=== PATIENT | male | born 1980 | race Caucasian/White ===

== ENCOUNTER 2024-02-24 21:52 | Inpatient (IN) | payer OTHER ==
[~2024-02-24] VITALS: Ht 172.7 cm; Wt 86.2 kg
[2024-02-24] MEDS: AZITHROMYCIN 500 MG in DEXTROSE 5% 250 ML IV ONE (00:40)
[2024-02-24] MEDS ORDERED: MAG SULF 2000 MG/WATER PREMIX 50 ML IV ONE (21:59)
[2024-02-24] MEDS ORDERED: methylPREDNISolone SS 125 MG/2 ML VIAL ONE (22:00)
[2024-02-24] MEDS: ALBUTEROL SULFATE/IPRATROPIU 3 ML SOL IH ONE ×2 (22:03→22:04)
[2024-02-24 22:05] VITALS: PULSE 133; RESP 36; O2SAT 96
[2024-02-24] MEDS: MAG SULF 2000 MG/WATER PREMIX 50 ML IV ONE (22:20)
[2024-02-24] MEDS: methylPREDNISolone SS 125 MG/2 ML VIAL IVP ONE (22:21)
[2024-02-24 22:22] VITALS: BP 169/98; PULSE 132; RESP 25; TEMP 98; O2SAT 92
[2024-02-24 22:56] LABS: BASOPHILS # (AUTO) 0.1 K/uL (0.00-0.22); BASOPHILS % (AUTO) 0.5 % (0.0-2.0); EOSINOPHILS % (AUTO) 8.5 % (0.0-4.0); HEMATOCRIT 45.8 % (36-52); HEMOGLOBIN 14.8 g/dL (12.0-18.0); LYMPHOCYTES # (AUTO) 1.6 K/uL (2.0-11.5); LYMPHOCYTES % (AUTO) 13.1 % (20.5-51.1); MEAN CORPUSCULAR HEMOGLOBIN 27 pg (27-31); MEAN CORPUSCULAR HGB CONC 32 g/dL (33-37); MONOCYTES # (AUTO) 1.2 K/uL (0.8-1.0); MONOCYTES % (AUTO) 10.1 % (1.7-9.3); NEUTROPHILS # (AUTO) 8.3 K/uL (1.8-7.7); NEUTROPHILS % (AUTO) 67.8 % (42.2-75.2); PLATELET COUNT (AUTO) 294 K/uL (140-450); RED BLOOD CELL COUNT(AUTO) 5.39 MIL/uL (4.20-6.10); RED CELL DISTRIBUTION WIDTH 15.7 % (11.6-13.7); WHITE BLOOD COUNT (AUTO) 12.2 K/uL (4.8-10.8)
[2024-02-24 23:09] LABS: ANION GAP 13.1 (8-16); CALCIUM 9.3 mg/dL (8.5-10.1); CARBON DIOXIDE 28.8 mmol/L (21-32); CREATININE 0.8 mg/dL (0.6-1.3); POTASSIUM 3.9 mmol/L (3.5-5.1)
[2024-02-24 23:12] LABS: INR 0.94 (0.8-1.2); PARTIAL THROMBOPLASTIN TIME 26.7 secs (22-35.6); PROTHROMBIN TIME 9.9 secs (10.8-13.4)
[2024-02-24 23:13] LABS: ALBUMIN 3.5 g/dL (3.4-5.0)
[2024-02-24] MEDS ORDERED: cefTRIAXone 1,000 MG VIAL ONE (23:18)
[2024-02-24 23:19] LABS: LACTIC ACID 1.3 mmol/L (0.4-2.0)
[2024-02-24] MEDS: FUROSEMIDE 40 MG/4 ML VIAL IVP ONE (23:21)
[2024-02-24 23:32] LABS: ALANINE AMINOTRANSFERASE 71 U/L (12-78); ALKALINE PHOSPHATASE 76 U/L (50-136); ASPARTATE AMINOTRANSFERASE 36 U/L (15-37); BILIRUBIN,DIRECT 0.2 mg/dL (0.0-0.3); TOTAL BILIRUBIN 0.7 mg/dL (0.0-1.0); TOTAL PROTEIN, SERUM 7.5 g/dL (6.4-8.2)
[2024-02-25] VITALS (12 sets, daily range): BP systolic 112–135; BP diastolic 77–92; PULSE 11–111; RESP 16–19; TEMP 96.8–97.1; O2SAT 88–98
[2024-02-25 00:16] LABS: APPEARANCE,URINE CLEAR (CLEAR); BILIRUBIN,URINE NEGATIVE (NEGATIVE); BLOOD, URINE NEGATIVE (NEGATIVE); COLOR,URINE YELLOW (YELLOW); LEUKOCYTE ESTERASE ,URINE NEGATIVE (NEGATIVE); NITRITE, URINE NEGATIVE (NEGATIVE); PROTEIN,URINE NEGATIVE (NEGATIVE); UGLUCOSE NEGATIVE (NEGATIVE); UROBILINOGEN,URINE 0.2 EU/dL (0.2 - 1)
[2024-02-25 00:27] LABS: AMPHETAMINE, URINE POSITIVE ng/ml (NEG <=1000); BARBITURATE, URINE NEGATIVE ng/ml (NEG <=200); BENZODIAZEPINE, URINE NEGATIVE ng/mL (NEG <=200); CANNABINOID, URINE NEGATIVE ng/mL (NEG <=50); COCAINE, URINE NEGATIVE ng/mL (NEG <=300); OPIATE, URINE NEGATIVE ng/mL (NEG <=2000); PHENCYCLIDINE SCREEN,URINE NEGATIVE ng/mL (NEG <=25)
[2024-02-25] MEDS ORDERED: AZITHROMYCIN 500 MG INJ VIAL IV ONE (00:36)
[2024-02-25] MEDS ORDERED: HYDROcodone/APAP 5/325 MG 1 TAB TAB PO PRN (01:30)
[2024-02-25] MEDS ORDERED: ACETAMINOPHEN 325 MG TAB PO PRN (01:30)
[2024-02-25] MEDS ORDERED: MAGNESIUM OXIDE 400 MG TAB PO PRN (01:30)
[2024-02-25] MEDS ORDERED: MAG SULF 2000 MG/WATER PREMIX 50 ML IV PRN (01:30)
[2024-02-25] MEDS ORDERED: POTASSIUM CHLORIDE 10 MEQ TABER PO PRN (01:30)
[2024-02-25] MEDS ORDERED: ONDANSETRON 4 MG/2 ML VIAL IVP PRN (01:30)
[2024-02-25] MEDS ORDERED: ZOLPIDEM 5 MG TAB PO PRN (01:30)
[2024-02-25] MEDS ORDERED: MORPHINE SULFATE 4 MG/ML SYR IVP PRN (01:30)
[2024-02-25] MEDS ORDERED: KCL 20 MEQ IN 100 mL PREMIX 200 ML IV PRN (01:30)
[2024-02-25] MEDS ORDERED: LORazepam 1 MG TAB PO PRN (01:30)
[2024-02-25 02:18] LABS: FLU A ANTIGEN negative (NEGATIVE); FLU B ANTIGEN NEGATIVE (NEGATIVE)
[2024-02-25] MEDS: methylPREDNISolone SS 40 MG/ML VIAL ONE (05:00)
[2024-02-25] MEDS: methylPREDNISolone SS 40 MG in WATER STERILE 1 ML IV SCH (06:00)
[2024-02-25] MEDS: ALBUTEROL SULFATE/IPRATROPIU 3 ML SOL IH SCH (08:42)
[2024-02-25] MEDS: BUDESONIDE 0.5 MG/2 ML NEBU INH SCH (08:42)
[2024-02-25] MEDS: DOCUSATE SODIUM 100 MG GELCAP PO SCH (09:00)
[2024-02-25] MEDS: ENOXAPARIN 40 MG/0.4 ML SYR SUBQ SCH (09:00)
[2024-02-25] MEDS: methylPREDNISolone SS 40 MG/ML VIAL IVP SCH (13:12)
[2024-02-25] MEDS: MEDS-TO-BEDS MC SCH (21:00)
[2024-02-25] MEDS: methylPREDNISolone SS 125 MG/2 ML VIAL IVP SCH (22:03)
[2024-02-25] MEDS: FAMOTIDINE 20 MG TAB PO SCH (22:03)
[2024-02-25] MEDS: AZITHROMYCIN 500 MG in DEXTROSE 5% 250 ML IV SCH (22:04)
[2024-02-26] VITALS (9 sets, daily range): BP systolic 122–140; BP diastolic 71–88; PULSE 82–107; RESP 16–22; TEMP 96.8–98.6; O2SAT 90–98
[2024-02-26 09:54] LABS: BASOPHILS % (AUTO) 0.1 % (0.0-2.0); HEMATOCRIT 43.6 % (36-52); LYMPHOCYTES # (AUTO) 0.4 K/uL (2.0-11.5); LYMPHOCYTES % (AUTO) 1.7 % (20.5-51.1); MEAN CORPUSCULAR HEMOGLOBIN 27 pg (27-31); MEAN CORPUSCULAR HGB CONC 32 g/dL (33-37); MEAN CORPUSCULAR VOLUME 83.9 fL (80-94); MONOCYTES # (AUTO) 0.5 K/uL (0.8-1.0); MONOCYTES % (AUTO) 2.4 % (1.7-9.3); NEUTROPHILS # (AUTO) 20.4 K/uL (1.8-7.7); NEUTROPHILS % (AUTO) 95.8 % (42.2-75.2); PLATELET COUNT (AUTO) 295 K/uL (140-450); RED CELL DISTRIBUTION WIDTH 15.1 % (11.6-13.7); WHITE BLOOD COUNT (AUTO) 21.3 K/uL (4.8-10.8)
[2024-02-26 10:07] LABS: ANION GAP 9.2 (8-16); CALCIUM 9.2 mg/dL (8.5-10.1); CARBON DIOXIDE 31.1 mmol/L (21-32); CREATININE 0.8 mg/dL (0.6-1.3); POTASSIUM 4.3 mmol/L (3.5-5.1)
[2024-02-26] MEDS: guaiFENesin DM 200/20 MG-10 ML 10 ML UDC PO SCH (11:57)
[2024-02-26] MEDS ORDERED: DEXAMETHASONE 4 MG/ML VIAL IVP SCH (21:00)
[2024-02-26] MEDS: methylPREDNISolone SS 40 MG/ML VIAL IVP SCH (22:32)
[2024-02-27] VITALS (9 sets, daily range): BP systolic 136–145; BP diastolic 66–88; PULSE 62–109; RESP 17–20; TEMP 97.3–98.7; O2SAT 92–100
[2024-02-27 10:01] LABS: HEMATOCRIT 43.1 % (36-52); HEMOGLOBIN 13.9 g/dL (12.0-18.0); LYMPHOCYTES # (AUTO) 0.6 K/uL (2.0-11.5); LYMPHOCYTES % (AUTO) 3.2 % (20.5-51.1); MEAN CORPUSCULAR HEMOGLOBIN 27 pg (27-31); MEAN CORPUSCULAR HGB CONC 32 g/dL (33-37); MEAN CORPUSCULAR VOLUME 84.1 fL (80-94); MONOCYTES # (AUTO) 0.6 K/uL (0.8-1.0); MONOCYTES % (AUTO) 3.2 % (1.7-9.3); NEUTROPHILS # (AUTO) 18.2 K/uL (1.8-7.7); NEUTROPHILS % (AUTO) 93.6 % (42.2-75.2); PLATELET COUNT (AUTO) 313 K/uL (140-450); RED BLOOD CELL COUNT(AUTO) 5.12 MIL/uL (4.20-6.10); RED CELL DISTRIBUTION WIDTH 15.3 % (11.6-13.7); WHITE BLOOD COUNT (AUTO) 19.4 K/uL (4.8-10.8)
[2024-02-27 10:24] LABS: ANION GAP 9.8 (8-16); CREATININE 0.9 mg/dL (0.6-1.3); POTASSIUM 4.8 mmol/L (3.5-5.1)
[2024-02-27] MEDS ORDERED: GUAI5LIQ5 PO (14:48)
[2024-02-27] MEDS ORDERED: PRED10TA5 PO (14:48)
[2024-02-27] MEDS ORDERED: PUL.5N INH (14:48)
[2024-02-27] MEDS ORDERED: ALBU3SOL83 IH (14:48)
[2024-02-27] MEDS ORDERED: DOXY-690 PO (14:49)
== END 2024-02-27 18:00 | disposition home or self-care (01) | DRG 140 ==
LOC: MED 21:52 → MTU 02-25 01:30
PROVIDERS: ADMIT Hospitalist; ATTEND Hospitalist
PROC: 5A09357 Assistance with Respiratory Ventilation, Less than 24 Consecutive Hours, Continuous Positive Airway Pressure (ICD-10-PCS; principal; 2024-02-25)
DX: J44.1 Chronic obstructive pulmonary disease with (acute) exacerbation (principal); J96.21 Acute and chronic respiratory failure with hypoxia; R65.11 Systemic inflammatory response syndrome (SIRS) of non-infectious origin with acute organ dysfunction; E66.9 Obesity, unspecified; Z20.822 Contact with and (suspected) exposure to COVID-19; F15.129 Other stimulant abuse with intoxication, unspecified; I10 Essential (primary) hypertension; Z88.8 Allergy status to other drugs, medicaments and biological substances; Z68.28 Body mass index [BMI] 28.0-28.9, adult
CPT/HCPCS: 36415; 71045; 80048; 80076; 80305; 81003; 82948; 83605; 83735; 83880; 84484; 85025; 85610; 85730; 87040; 87081; 94640; 94660; 96365; 96367; 96375; 99285; J0456; J0696; J1650; J1940; J2919; J2920; J3475; J7060; J7626; Q0092

== ENCOUNTER 2024-04-08 20:27 | Inpatient (IN) | payer OTHER ==
[~2024-04-08] VITALS: Ht 175.3 cm; Wt 99.8 kg
[~2024-04-08 20:27] MED LIST: ALBU3SOL83 IH; DOXY-690 PO; GUAI5LIQ5 PO; PRED10TA5 PO; PUL.5N INH
[2024-04-08 20:31] VITALS: BP 133/102; PULSE 120; RESP 24; TEMP 97.9; O2SAT 88
[2024-04-08 20:46] VITALS: PULSE 114; PULSE 115; RESP 20; RESP 22; O2SAT 91
[2024-04-08] MEDS: ALBUTEROL SULFATE/IPRATROPIU 3 ML SOL IH ONE ×2 (20:46→21:02)
[2024-04-08 21:02] VITALS: PULSE 120; RESP 20; O2SAT 88
[2024-04-08] MEDS: NACL 0.9% 1,000 ML IV ONE (21:04)
[2024-04-08 21:16] LABS: BASOPHILS % (AUTO) 0.5 % (0.0-2.0); EOSINOPHILS # (AUTO) 0.8 K/uL (0-0.4); EOSINOPHILS % (AUTO) 8.1 % (0.0-4.0); HEMATOCRIT 48.1 % (36-52); HEMOGLOBIN 15.5 g/dL (12.0-18.0); LYMPHOCYTES # (AUTO) 1.5 K/uL (2.0-11.5); LYMPHOCYTES % (AUTO) 15.8 % (20.5-51.1); MEAN CORPUSCULAR HEMOGLOBIN 27 pg (27-31); MEAN CORPUSCULAR HGB CONC 32 g/dL (33-37); MEAN CORPUSCULAR VOLUME 84.8 fL (80-94); MONOCYTES # (AUTO) 0.8 K/uL (0.8-1.0); MONOCYTES % (AUTO) 8.4 % (1.7-9.3); NEUTROPHILS # (AUTO) 6.5 K/uL (1.8-7.7); NEUTROPHILS % (AUTO) 67.2 % (42.2-75.2); PLATELET COUNT (AUTO) 326 K/uL (140-450); RED BLOOD CELL COUNT(AUTO) 5.68 MIL/uL (4.20-6.10); RED CELL DISTRIBUTION WIDTH 15.9 % (11.6-13.7); WHITE BLOOD COUNT (AUTO) 9.7 K/uL (4.8-10.8)
[2024-04-08] MEDS: methylPREDNISolone SS 125 MG/2 ML VIAL IVP ONE (21:16)
[2024-04-08] MEDS: MAG SULF 2000 MG/WATER PREMIX 50 ML IV ONE (21:17)
[2024-04-08 21:39] LABS: ANION GAP 11.8 (8-16); CALCIUM 9.6 mg/dL (8.5-10.1); CARBON DIOXIDE 29.1 mmol/L (21-32); CREATININE 0.9 mg/dL (0.6-1.3); POTASSIUM 3.9 mmol/L (3.5-5.1)
[2024-04-08 22:00] LABS: FLU A ANTIGEN NEGATIVE (NEGATIVE); FLU B ANTIGEN NEGATIVE (NEGATIVE)
[2024-04-08 22:33] VITALS: PULSE 121; RESP 24; O2SAT 86
[2024-04-08] MEDS: ALBUTEROL 0.083% 2.5 MG/3 ML NEBU INH ONE (22:33)
[2024-04-09] VITALS (13 sets, daily range): BP systolic 129–161; BP diastolic 88–97; PULSE 99–120; RESP 18–24; TEMP 96.8–98; O2SAT 85–97
[2024-04-09 02:14] LABS: BLOOD GAS PCO2 40.4 mmHg (35.0-48.0); BLOOD GAS PH 7.396 (7.350-7.450); BLOOD GAS PO2 52.2 mmHg (83.0-108.0)
[2024-04-09 02:15] LABS: BLOOD GAS BASE EXCESS -0.5 mmol/L (-2.0-3.0); BLOOD GAS HCO3 24.2 mmol/L (21.0-28.0)
[2024-04-09 02:16] LABS: BLOOD GAS O2 SAT% 86.6 % (94.0-98.0)
[2024-04-09] MEDS: cefTRIAXone 1,000 MG VIAL ONE (02:37)
[2024-04-09] MEDS: AZITHROMYCIN 500 MG in DEXTROSE 5% 250 ML IV SCH ×2 (03:15→20:50)
[2024-04-09] MEDS: AZITHROMYCIN 500 MG INJ VIAL IV ONE (03:16)
[2024-04-09] MEDS: ALBUTEROL SULFATE/IPRATROPIU 3 ML SOL IH SCH (03:26)
[2024-04-09] MEDS: guaiFENesin DM 200/20 MG-10 ML 10 ML UDC PO SCH (05:11)
[2024-04-09] MEDS: methylPREDNISolone SS 125 MG in WATER STERILE 2 ML IV SCH (05:11)
[2024-04-09] MEDS: methylPREDNISolone SS 125 MG/2 ML VIAL ONE (05:15)
[2024-04-09] MEDS: WATER STERILE 0 ML MC ONE (05:15)
[2024-04-09] MEDS: BUDESONIDE 0.5 MG/2 ML NEBU INH SCH (07:46)
[2024-04-09] MEDS: ENOXAPARIN 40 MG/0.4 ML SYR SUBQ SCH (08:49)
[2024-04-09] MEDS: methylPREDNISolone SS 125 MG/2 ML VIAL IVP SCH (13:15)
[2024-04-09] MEDS: MEDS-TO-BEDS MC SCH (20:14)
[2024-04-09] MEDS: ZOLPIDEM 5 MG TAB PO PRN (20:14)
[2024-04-10] VITALS (11 sets, daily range): BP systolic 124–144; BP diastolic 80–97; PULSE 64–119; RESP 17–24; TEMP 97–97.4; O2SAT 86–93
[2024-04-10 06:35] LABS: HEMATOCRIT 45.5 % (36-52); HEMOGLOBIN 14.5 g/dL (12.0-18.0); LYMPHOCYTES # (AUTO) 0.6 K/uL (2.0-11.5); LYMPHOCYTES % (AUTO) 2.5 % (20.5-51.1); MEAN CORPUSCULAR HEMOGLOBIN 27 pg (27-31); MEAN CORPUSCULAR HGB CONC 32 g/dL (33-37); MEAN CORPUSCULAR VOLUME 84.8 fL (80-94); MONOCYTES # (AUTO) 1.4 K/uL (0.8-1.0); MONOCYTES % (AUTO) 5.8 % (1.7-9.3); NEUTROPHILS # (AUTO) 21.2 K/uL (1.8-7.7); NEUTROPHILS % (AUTO) 91.7 % (42.2-75.2); PLATELET COUNT (AUTO) 356 K/uL (140-450); RED BLOOD CELL COUNT(AUTO) 5.36 MIL/uL (4.20-6.10); RED CELL DISTRIBUTION WIDTH 15.3 % (11.6-13.7); WHITE BLOOD COUNT (AUTO) 23.2 K/uL (4.8-10.8)
[2024-04-10 06:50] LABS: CALCIUM 9.3 mg/dL (8.5-10.1); CARBON DIOXIDE 25.9 mmol/L (21-32); CREATININE 0.9 mg/dL (0.6-1.3); POTASSIUM 3.9 mmol/L (3.5-5.1)
[2024-04-10] MEDS: methylPREDNISolone SS 40 MG/ML VIAL IVP SCH (21:06)
[2024-04-11] VITALS (15 sets, daily range): BP systolic 116–146; BP diastolic 60–95; PULSE 67–114; RESP 18–20; TEMP 96.9–98; O2SAT 90–96
[2024-04-11 07:02] LABS: HEMOGLOBIN 14.6 g/dL (12.0-18.0); MEAN CORPUSCULAR HEMOGLOBIN 28 pg (27-31); MEAN CORPUSCULAR HGB CONC 32 g/dL (33-37); PLATELET COUNT (AUTO) 331 K/uL (140-450); RED CELL DISTRIBUTION WIDTH 15.6 % (11.6-13.7); WHITE BLOOD COUNT (AUTO) 22.1 K/uL (4.8-10.8)
[2024-04-11 07:09] LABS: ANION GAP 12.2 (8-16); CALCIUM 9.4 mg/dL (8.5-10.1); CARBON DIOXIDE 28.5 mmol/L (21-32); POTASSIUM 4.7 mmol/L (3.5-5.1)
[2024-04-11 07:31] LABS: LYMPHOCYTES % (MANUAL) 3 % (20-46); MONOCYTES % (MANUAL) 4 % (5-12)
[2024-04-11 07:32] LABS: PLATELET ESTIMATE ADEQUATE
[2024-04-11] MEDS: methylPREDNISolone SS 40 MG/ML VIAL IVP SCH (18:23)
[2024-04-11] MEDS: FAMOTIDINE 20 MG/2 ML VIAL IV SCH (20:52)
[2024-04-12] VITALS (8 sets, daily range): BP systolic 139–149; BP diastolic 82–100; PULSE 72–97; RESP 16–78; TEMP 97.2–97.3; O2SAT 90–96
[2024-04-12 07:27] LABS: BASOPHILS % (AUTO) 0.1 % (0.0-2.0); HEMATOCRIT 43.2 % (36-52); HEMOGLOBIN 13.9 g/dL (12.0-18.0); LYMPHOCYTES # (AUTO) 0.6 K/uL (2.0-11.5); LYMPHOCYTES % (AUTO) 3.1 % (20.5-51.1); MEAN CORPUSCULAR HEMOGLOBIN 27 pg (27-31); MEAN CORPUSCULAR HGB CONC 32 g/dL (33-37); MEAN CORPUSCULAR VOLUME 84.4 fL (80-94); MONOCYTES # (AUTO) 0.5 K/uL (0.8-1.0); MONOCYTES % (AUTO) 2.9 % (1.7-9.3); NEUTROPHILS # (AUTO) 17.7 K/uL (1.8-7.7); NEUTROPHILS % (AUTO) 93.9 % (42.2-75.2); PLATELET COUNT (AUTO) 299 K/uL (140-450); RED BLOOD CELL COUNT(AUTO) 5.12 MIL/uL (4.20-6.10); RED CELL DISTRIBUTION WIDTH 15.4 % (11.6-13.7); WHITE BLOOD COUNT (AUTO) 18.9 K/uL (4.8-10.8)
[2024-04-12 07:28] LABS: ANION GAP 11.3 (8-16); CALCIUM 9.2 mg/dL (8.5-10.1); CARBON DIOXIDE 28.2 mmol/L (21-32); CREATININE 0.8 mg/dL (0.6-1.3); POTASSIUM 4.5 mmol/L (3.5-5.1)
[2024-04-12 07:31] LABS: MAGNESIUM 2.3 mg/dL (1.8-2.4); PHOSPHORUS 3.9 mg/dL (2.5-4.9)
[2024-04-21 12:32] LABS: ALLERGEN, DERMATOPHAGOIDES FAR 0.17; ALLERGEN, DERMATOPHAGOIDES PTE 0.18
[2024-04-21 12:33] LABS: ALLERGEN, DOG EPITHELIUM 0.24
[2024-04-21 13:18] LABS: ALLERGEN, SMOOTH BROME 7.73
[2024-04-21 13:19] LABS: ALLERGEN, WHITE OAK < 0.10
[2024-04-21 13:21] LABS: ALLERGEN, AMERICAN COCKROACH < 0.10; ALLERGEN, BAHIA GRASS 4.93
[2024-04-21 13:34] LABS: ALLERGEN, ASPERGILLUS FUMIGATU 0.55
[2024-04-21 13:38] LABS: ALLERGEN, CAT HAIR < 0.10
[2024-04-21 13:43] LABS: ALLERGEN, CLADOSPORIUM HERBARU 0.17; ALLERGEN, MUCOR RACEMOSUS 0.23
[2024-04-21 13:47] LABS: ALLERGEN, ACACIA < 0.10; ALLERGEN, EUCALYPTUS < 0.10
[2024-04-21 13:48] LABS: ALLERGEN, NETTLE 0.43; ALLERGEN, PECAN TREE 0.15
[2024-04-21 13:49] LABS: ALLERGEN, SYCAMORE, AMERICAN < 0.10; ALLERGEN, WHITE MULBERRY 0.11
[2024-04-21 13:50] LABS: ALLERGEN, ROUGH PIGWEED < 0.10; ALLERGEN, WESTERN RAGWEED 0.11
[2024-04-21 13:51] LABS: ALLERGEN, RUSSIAN THISTLE 0.12
[2024-04-21 13:52] LABS: ALLERGEN, WALNUT POLLEN 0.14
[2024-04-23 10:23] LABS: ALLERGEN, OLIVE TREE 0.13
[2024-04-23 10:24] LABS: ALLERGEN, PENICILLIUM NOTATUM 0.54
== END 2024-04-12 15:45 | disposition left against medical advice (07) | DRG 140 ==
LOC: MED 20:27 → MTU 04-09 01:06
PROVIDERS: ADMIT Hospitalist; ATTEND Hospitalist
PROC: 5A0945A Assistance with Respiratory Ventilation, 24-96 Consecutive Hours, High Flow/Velocity Cannula (ICD-10-PCS; principal; 2024-04-09)
DX: J44.1 Chronic obstructive pulmonary disease with (acute) exacerbation (principal); J96.01 Acute respiratory failure with hypoxia; R65.10 Systemic inflammatory response syndrome (SIRS) of non-infectious origin without acute organ dysfunction; J47.9 Bronchiectasis, uncomplicated; Z20.822 Contact with and (suspected) exposure to COVID-19; Z53.29 Procedure and treatment not carried out because of patient's decision for other reasons; Z79.899 Other long term (current) drug therapy; Z88.8 Allergy status to other drugs, medicaments and biological substances; Z87.891 Personal history of nicotine dependence
CPT/HCPCS: 36415; 36600; 71045; 71275; 80048; 82785; 82803; 83735; 83880; 84100; 85025; 86003; 87081; 93005; 94640; 94644; 96365; 96366; 99291; J0456; J0696; J1650; J2919; J2920; J3475; J3490; J7060; J7613; J7626; Q9967